=== PATIENT | female | born 1940 | race Native Hawaiian/Other Pacific Islander ===

== ENCOUNTER 2017-04-01 13:49 | Outpatient (CLI) | payer OTHER ==
[2017-04-01 14:29] LABS: PLATELET COUNT 205 K/uL (152-353)
[2017-04-01 14:42] LABS: POTASSIUM 4.2 mmol/L (3.6-5.2); SODIUM 139 mmol/L (136-145)
== END 2017-04-01 19:06 | disposition home or self-care (01) ==
LOC: LAB 13:49
PROVIDERS: Nurse Practitioner Family
DX: Z00.00 Encounter for general adult medical examination without abnormal findings (principal); I10 Essential (primary) hypertension; I50.9 Heart failure, unspecified; R53.83 Other fatigue; R53.81 Other malaise; E78.00 Pure hypercholesterolemia, unspecified; E55.9 Vitamin D deficiency, unspecified
CPT/HCPCS: 80053; 80061; 82306; 83036; 84436; 84443; 85027; 86618

== ENCOUNTER 2017-04-25 10:23 | Outpatient (CLI) | payer OTHER | END 2017-04-25 11:40 | disposition home or self-care (01) | LOC: MAMMO 10:23 | DX: Z12.31 Encounter for screening mammogram for malignant neoplasm of breast (principal); M85.88 Other specified disorders of bone density and structure, other site; M25.78 Osteophyte, vertebrae ==

== ENCOUNTER 2017-10-21 12:04 | Outpatient (CLI) | payer OTHER ==
[2017-10-21 13:02] LABS: PLATELET COUNT 190 K/uL (152-353)
[2017-10-21 13:33] LABS: POTASSIUM 4.1 mmol/L (3.6-5.2)
== END 2017-10-21 19:50 | disposition home or self-care (01) ==
LOC: LAB 12:04
PROVIDERS: Nurse Practitioner Family
DX: I10 Essential (primary) hypertension (principal); E78.4 Other hyperlipidemia; E55.9 Vitamin D deficiency, unspecified; E53.8 Deficiency of other specified B group vitamins; I50.9 Heart failure, unspecified; Z79.899 Other long term (current) drug therapy; Z51.81 Encounter for therapeutic drug level monitoring
CPT/HCPCS: 80053; 80061; 82306; 83036; 84436; 84443; 85027

== ENCOUNTER 2018-05-09 10:10 | Outpatient (CLI) | payer OTHER | END 2018-05-09 20:49 | disposition home or self-care (01) | LOC: MAMMO 10:10 | DX: Z12.31 Encounter for screening mammogram for malignant neoplasm of breast (principal) ==

== ENCOUNTER 2018-08-27 11:56 | Outpatient (CLI) | payer OTHER | END 2018-08-27 23:45 | disposition home or self-care (01) | LOC: RESP 11:56 | DX: I49.8 Other specified cardiac arrhythmias (principal) | CPT/HCPCS: 93005 ==

== ENCOUNTER 2018-09-04 07:43 | Day surgery (SDC) | payer OTHER ==
[2018-09-04 08:23] LABS: PLATELET COUNT 191 K/uL (152-353)
[2018-09-04 08:27] LABS: POTASSIUM 3.2 mmol/L (3.6-5.2)
== END 2018-09-04 11:30 | disposition home or self-care (01) ==
LOC: OR 07:43
PROVIDERS: Internal Medicine
PROC: 0DJD8ZZ Inspection of Lower Intestinal Tract, Via Natural or Artificial Opening Endoscopic (ICD-10-PCS; principal; 2018-09-04)
DX: K62.5 Hemorrhage of anus and rectum (principal); K64.4 Residual hemorrhoidal skin tags; K57.30 Diverticulosis of large intestine without perforation or abscess without bleeding; Z12.11 Encounter for screening for malignant neoplasm of colon
CPT/HCPCS: 80053; 85027

== ENCOUNTER 2019-05-26 09:40 | Outpatient (CLI) | payer OTHER ==
[2019-05-26 15:27] LABS: PLATELET COUNT 179 K/uL (152-353)
[2019-05-26 15:45] LABS: POTASSIUM 4.3 mmol/L (3.6-5.2)
== END 2019-05-26 19:36 | disposition home or self-care (01) ==
LOC: LAB 09:40 → MAMMO 09:40
PROVIDERS: Nurse Practitioner Family
DX: Z00.00 Encounter for general adult medical examination without abnormal findings (principal); Z12.31 Encounter for screening mammogram for malignant neoplasm of breast; E78.49 Other hyperlipidemia; M25.50 Pain in unspecified joint; E55.9 Vitamin D deficiency, unspecified; I50.9 Heart failure, unspecified; I49.9 Cardiac arrhythmia, unspecified; R53.83 Other fatigue; K21.9 Gastro-esophageal reflux disease without esophagitis; Z79.899 Other long term (current) drug therapy; E53.8 Deficiency of other specified B group vitamins; I11.0 Hypertensive heart disease with heart failure
CPT/HCPCS: 80053; 80061; 82306; 82607; 83036; 84439; 84443; 85027

== ENCOUNTER 2022-04-02 16:14 | Emergency (ER) | payer OTHER ==
[~2022-04-02] VITALS: Ht 160 cm; Wt 65.8 kg
[2022-04-02 16:25] VITALS: TEMP 98.6
[2022-04-02] MEDS ORDERED: HYDR25TA60 PO (17:02)
[2022-04-02] MEDS ORDERED: COZAAR25 MG PO (17:02)
[2022-04-02] MEDS ORDERED: AMLODIPINE BESYLATE PO (17:03)
[2022-04-02] MEDS ORDERED: PANTOPRAZOLE 40MG TA PO (17:03)
[2022-04-02 17:37] LABS: PLATELET COUNT 221 K/uL (152-353)
[2022-04-02 17:44] LABS: POTASSIUM 2.8 mmol/L (3.6-5.2)
[2022-04-02 18:04] LABS: PARTIAL THROMBOPLASTIN TIME 25.3 SECONDS (24.5-33.6)
[2022-04-02] MEDS ORDERED: MIRALAX17 GM PO (19:10)
[2022-04-02] MEDS ORDERED: VITAMIN D3 1.251 CAP PO (19:10)
[2022-04-02] MEDS ORDERED: B12-ACTIVE1 MG PO (19:11)
[2022-04-02] MEDS ORDERED: LEVOFLOXACIN500 MG PO (19:12)
[2022-04-02] MEDS ORDERED: ONDA4TAB3 PO (19:12)
[2022-04-02 19:16] VITALS: BP 122/67
== END 2022-04-02 19:16 | disposition short-term general hospital (02) ==
LOC: ED 16:14
PROVIDERS: Emergency Medicine Emergency Medical Services
DX: I48.20 Chronic atrial fibrillation, unspecified (principal); N19 Unspecified kidney failure; R41.82 Altered mental status, unspecified; Z11.52 Encounter for screening for COVID-19; R29.6 Repeated falls
CPT/HCPCS: 36415; 80053; 81000; 83735; 84484; 85027; 85379; 85610; 85730; 87040; 87502; 87635; 93005; 96360; 96365; 96372; 96375; 99284; J1650; J3490; U0003

== ENCOUNTER 2022-04-17 12:24 | Emergency (ER) | payer OTHER ==
[~2022-04-17] VITALS: Ht 160 cm; Wt 65.8 kg
[~2022-04-17 12:24] MED LIST: AMLODIPINE BESYLATE PO; B12-ACTIVE1 MG PO; COZAAR25 MG PO; HYDR25TA60 PO; LEVOFLOXACIN500 MG PO; MIRALAX17 GM PO; ONDA4TAB3 PO; PANTOPRAZOLE 40MG TA PO; VITAMIN D3 1.251 CAP PO
[2022-04-17 13:03] LABS: PLATELET COUNT 188 K/uL (152-353)
[2022-04-17 13:06] LABS: POTASSIUM 3.2 mmol/L (3.6-5.2)
[2022-04-17 13:19] LABS: PARTIAL THROMBOPLASTIN TIME 30.3 SECONDS (24.5-33.6)
[2022-04-17 14:25] VITALS: BP 108/64
== END 2022-04-17 14:34 | disposition left against medical advice (07) ==
LOC: ED 12:24
PROVIDERS: Emergency Medicine
DX: I48.91 Unspecified atrial fibrillation (principal); N17.8 Other acute kidney failure; Z53.29 Procedure and treatment not carried out because of patient's decision for other reasons; D64.89 Other specified anemias
CPT/HCPCS: 80053; 83880; 84484; 85027; 85610; 85730; 99283